=== PATIENT | female | born 1960 | race Caucasian/White ===

== ENCOUNTER 2022-06-25 17:51 | Emergency (ER) | payer SELFPAY ==
[2022-06-25 17:59] VITALS: BP 167/83; PULSE 86; RESP 18; TEMP 97.8; BMI 27.7
[2022-06-25] MEDS ORDERED: LIDOCAINE 5% TOPICAL PATCH TP ONE (18:38)
[2022-06-25] MEDS ORDERED: ACETAMINOPHEN 500 MG TABLET (FP) PO ONE (18:38)
[2022-06-25] MEDS ORDERED: CYCLOBENZAPRINE HCL 10 MG TABLET (FP) PO ONE (18:38)
[2022-06-25] MEDS ORDERED: KETOROLAC TROMETHAMINE 30 MG/1 ML VIAL IM ONE (18:38)
[2022-06-25] MEDS ORDERED: CYCLOBENZAPRINE HCL 10 MG TABLET (FP) ONE (18:41)
[2022-06-25] MEDS ORDERED: LIDOCAINE 5% TOPICAL PATCH ONE (18:42)
[2022-06-25] MEDS ORDERED: ACETAMINOPHEN 325 MG TABLET (FP) ONE (18:42)
[2022-06-25] MEDS ORDERED: KETOROLAC TROMETHAMINE 30 MG/1 ML VIAL ONE (18:42)
[2022-06-26] MEDS ORDERED: LIDOCAINE PATCH REMOVAL MC SCH (07:00)
== END 2022-06-25 19:19 | disposition home or self-care (01) ==
LOC: JERFT 17:51
PROC: 3E0233Z Introduction of Anti-inflammatory into Muscle, Percutaneous Approach (ICD-10-PCS; principal; 2022-06-25)
DX: M54.32 Sciatica, left side (principal)
CPT/HCPCS: 99284-25